=== PATIENT | female | born 1980 | race Caucasian/White ===

== ENCOUNTER 2017-03-15 06:44 | Emergency (ER) | payer SELFPAY ==
[2017-03-15 07:51] VITALS: BP 134/100
[2017-03-15 08:51] LABS: Basophils % (Auto) 0.5 % (0.0-1.8); Eosinophils % (Auto) 0.9 % (0.0-4.3); Hematocrit 45.8 % (30.3-42.9); Hemoglobin 15.1 gm/dl (10.1-14.3); Mean Corpuscular HGB Conc 33 % (30-34); Mean Corpuscular Hemoglobin 31 pg (28-32); Mean Corpuscular Volume 93 fl (79-97); Platelet Count 166 K/mm3 (140-440); Red Blood Count 4.94 M/mm3 (3.65-5.03); White Blood Count 7.1 K/mm3 (4.5-11.0)
[2017-03-15 08:59] LABS: Anion Gap 16 mmol/L; Blood Urea Nitrogen 7 mg/dL (7-17); Calcium 8.9 mg/dL (8.4-10.2); Carbon Dioxide 25 mmol/L (22-30); Chloride 101.4 mmol/L (98-107); Glucose 113 mg/dL (65-100); Potassium 4.9 mmol/L (3.6-5.0); Sodium 137 mmol/L (137-145)
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
== END 2017-03-15 08:40 | disposition left against medical advice (07) ==
LOC: ED 06:44
DX: R45.86 Emotional lability (principal); F31.9 Bipolar disorder, unspecified; F20.9 Schizophrenia, unspecified; F12.90 Cannabis use, unspecified, uncomplicated; Z72.0 Tobacco use
CPT/HCPCS: 36415; 80048; 85025; 99283; G0480; 80320

== ENCOUNTER 2017-03-17 00:48 | Emergency (ER) | payer SELFPAY ==
[2017-03-17 01:16] VITALS: BP 108/79
[2017-03-17 01:54] LABS: Urine Drugs of Abuse Note Disclamer
[2017-03-17 02:17] LABS: Basophils % (Auto) 0.5 % (0.0-1.8); Eosinophils % (Auto) 2.1 % (0.0-4.3); Hematocrit 44.9 % (30.3-42.9); Hemoglobin 14.6 gm/dl (10.1-14.3); Mean Corpuscular HGB Conc 33 % (30-34); Mean Corpuscular Hemoglobin 30 pg (28-32); Mean Corpuscular Volume 93 fl (79-97); Platelet Count 176 K/mm3 (140-440); Red Blood Count 4.85 M/mm3 (3.65-5.03); Red Cell Distribution Width 13.2 % (13.2-15.2); White Blood Count 6.8 K/mm3 (4.5-11.0)
[2017-03-17 02:20] LABS: Anion Gap 18 mmol/L; BUN/Creatinine Ratio 11.25; Blood Urea Nitrogen 9 mg/dL (7-17); Carbon Dioxide 27 mmol/L (22-30); Glucose 77 mg/dL (65-100); Potassium 3.4 mmol/L (3.6-5.0); Sodium 141 mmol/L (137-145)
[2017-03-17 02:21] LABS: Bacteria,Urine 1+ /HPF (Negative); Bilirubin,Urine NEG (Negative); Blood,Urine NEG (Negative); Ketones,Urine 20 mg/dL (Negative); Leukocyte Esterase,Urine TR (Negative); Mucus,Urine 3+ /HPF; Nitrite,Urine POS (Negative)
--- NOTE | 2017-03-17 14:44 | ED Elopement Review ---
ED Pt Elopement review - Results review Lab results: Laboratory Tests 03/17/17 03/17/17 03/17/17 01:40 01:40 01:40 WBC 6.8 RBC 4.85 Hgb 14.6 H Hct 44.9 H MCV 93 MCH 30 MCHC 33 RDW 13.2 Plt Count 176 Lymph % (Auto) 38.9 H [place] % (Auto) 10.5 H Eos % (Auto) 2.1 Baso % (Auto) 0.5 Lymph # 2.6 [place] # 0.7 Eos # 0.1 Baso # 0.0 Seg Neutrophils % 48.0 Seg Neutrophils # 3.3 Sodium 141 Potassium 3.4 L D Chloride 99.0 Carbon Dioxide 27 Anion Gap 18 BUN 9 Creatinine 0.8 Estimated GFR > 60 BUN/Creatinine Ratio 11.25 Glucose 77 Calcium 9.0 Urine Color Urine Turbidity Urine pH Ur Specific [place] Urine Protein Urine Glucose (UA) Urine Ketones Urine Blood Urine Nitrite Urine Bilirubin Urine Urobilinogen Ur Leukocyte Esterase Urine WBC (Auto) Urine RBC (Auto) U Epithel Cells (Auto) Urine Bacteria (Auto) Urine Mucus Urine HCG, Qual Urine Opiates Screen Urine Methadone Screen Ur Barbiturates Screen Ur Phencyclidine Scrn Ur Amphetamines Screen U Benzodiazepines Scrn Urine Cocaine Screen U Marijuana (THC) Screen Drugs of Abuse Note Plasma/Serum Alcohol < 0.01 03/17/17 03/17/17 Unknown Unknown WBC RBC Hgb Hct MCV MCH MCHC RDW Plt Count Lymph % (Auto) [place] % (Auto) Eos % (Auto) Baso % (Auto) Lymph # [place] # Eos # Baso # Seg Neutrophils % Seg Neutrophils # Sodium Potassium Chloride Carbon Dioxide Anion Gap BUN Creatinine Estimated GFR BUN/Creatinine Ratio Glucose Calcium Urine Color [place] Urine Turbidity Clear Urine pH 5.0 Ur Specific [place] 1.029 Urine Protein 30 mg/dl Urine Glucose (UA) Neg Urine Ketones 20 Urine Blood Neg Urine Nitrite Pos Urine Bilirubin Neg Urine Urobilinogen 4.0 Ur Leukocyte Esterase Tr Urine WBC (Auto) 7.0 H Urine RBC (Auto) 6.0 U Epithel Cells (Auto) 5.0 Urine Bacteria (Auto) 1+ Urine Mucus 3+ Urine HCG, Qual Negative Urine Opiates Screen Presumptive negative Urine Methadone Screen Presumptive negative Ur Barbiturates Screen Presumptive negative Ur Phencyclidine Scrn Presumptive negative Ur Amphetamines Screen Presumptive negative U Benzodiazepines Scrn Presumptive negative Urine Cocaine Screen Presumptive negative U Marijuana (THC) Screen Presumptive positive Drugs of Abuse Note Disclamer Plasma/Serum Alcohol - Call Back decision Pt Call Back Decision: No action required
== END 2017-03-17 05:15 | disposition left against medical advice (07) ==
LOC: ED 00:48
DX: N89.8 Other specified noninflammatory disorders of vagina (principal); Z53.21 Procedure and treatment not carried out due to patient leaving prior to being seen by health care provider
CPT/HCPCS: 36415; 80048; 80307; 81001; 81025; 85025; G0480; 80320

== ENCOUNTER 2017-03-21 00:03 | Emergency (ER) | payer OTHER ==
[2017-03-21 00:15] VITALS: BP 107/80
[2017-03-21 00:50] LABS: Bacteria,Urine 1+ /HPF (Negative); Bilirubin,Urine NEG (Negative); Blood,Urine NEG (Negative); Ketones,Urine 80 mg/dL (Negative); Leukocyte Esterase,Urine TR (Negative); Mucus,Urine 3+ /HPF; Nitrite,Urine NEG (Negative)
--- NOTE | 2017-03-21 01:16 | Emergency Department Report ---
HPI - General Chief Complaint: Urogenital-Female Time Seen by Provider: 03/21/17 00:35 - HPI HPI: 36-year-old female presents today complaining of vaginal discharge 2 weeks. Patient also complains of strong smell in her urine. Positive for history of UTI and states that this feels similar. Denies burning upon urination or blood in urine. Admits to increased urinary frequency and urgency. Denies fever, chills, nausea, vomiting, chest pain, shortness of breath, abdominal pain. Patient states that she was here last week and eloped. She would like to know her lab results. ED Past Medical Hx - Past Medical History Previous Medical History?: Yes Hx Psychiatric Treatment: Yes (bipolar, schizophrenia) Additional medical history: Vaginal delivery x 1 - Surgical History Past Surgical History?: No - Social History Smoking Status: Never Smoker Substance Use Type: None - Medications Home Medications: Home Medications Medication Instructions Recorded Confirmed Last Taken Type Nitrofurantoin Bates/M-Cryst 100 mg PO Q12HR #10 capsule 03/21/17 Unknown Rx [Macrobid CAP] metroNIDAZOLE [Flagyl] 500 mg PO Q12HR #14 tab 03/21/17 Unknown Rx ED Review of Systems ROS: Stated complaint: VAG DISCHARGE Other details as noted in HPI Constitutional: denies: chills, fever, malaise Eyes: denies: eye pain ENT: denies: ear pain, throat pain, congestion Respiratory: denies: cough, shortness of breath, wheezing Cardiovascular: denies: chest pain, palpitations Endocrine: no symptoms reported Gastrointestinal: denies: abdominal pain, nausea, vomiting Genitourinary: urgency, frequency, discharge. denies: dysuria, hematuria Skin: denies: rash Neurological: denies: headache, weakness Physical Exam - Physical Exam Vital Signs: Vital Signs 03/21/17 03/21/17 00:10 00:54 Temperature 98.3 F Pulse Rate 85 Respiratory 18 18 Rate Blood Pressure 107/80 [Right] O2 Sat by Pulse 99 Oximetry Physical Exam: GENERAL: The patient is well-developed and well-nourished. Patient is in NAD. HEAD: Normocephalic. Atraumatic. CHEST/LUNGS: Clear to auscultation throughout. HEART/CARDIOVASCULAR: Regular rate and rhythm. No murmurs, rubs or gallops. ABDOMEN: Abdomen is soft, nontender. Bowel sounds normoactive. No guarding or rebound tenderness. Negative for CVA tenderness bilaterally. GENITAL: Normal external genitalia. Positive for white curdy discharge in vaginal canal. No bleeding noted. EXTREMITIES: Peripheral pulses intact. Capillary refill less than 2 seconds. NEURO: Alert and oriented x 3. Normal gait. ED Course Vital Signs 03/21/17 03/21/17 00:10 00:54 Temperature 98.3 F Pulse Rate 85 Respiratory 18 18 Rate Blood Pressure 107/80 [Right] O2 Sat by Pulse 99 Oximetry ED Medical Decision Making - Lab Data Result diagrams: 03/21/17 01:00 Vital Signs 03/21/17 03/21/17 00:10 00:54 Temperature 98.3 F Pulse Rate 85 Respiratory 18 18 Rate Blood Pressure 107/80 [Right] O2 Sat by Pulse 99 Oximetry Lab Results 03/21/17 03/21/17 Range/Units 00:29 01:00 Sodium 141 (137-145) mmol/L Potassium 3.5 L (3.6-5.0) mmol/L Chloride 105.4 (98-107) mmol/L Carbon Dioxide 27 (22-30) mmol/L Anion Gap 12 mmol/L BUN 11 (7-17) mg/dL Creatinine 0.7 (0.7-1.2) mg/dL Estimated GFR > 60 ml/min BUN/Creatinine Ratio 15.71 % Glucose 100 (65-100) mg/dL Calcium 8.0 L (8.4-10.2) mg/dL Urine Color Yellow (Yellow) Urine Turbidity Clear (Clear) Urine pH 5.0 (5.0-7.0) Ur Specific [place] 1.028 (1.003-1.030) Urine Protein 30 mg/dl (Negative) mg/dL Urine Glucose (UA) Neg (Negative) mg/dL Urine Ketones 80 (Negative) mg/dL Urine Blood Neg (Negative) Urine Nitrite Neg (Negative) Urine Bilirubin Neg (Negative) Urine Urobilinogen 2.0 (<2.0) mg/dL Ur Leukocyte Esterase Tr (Negative) Urine WBC (Auto) 4.0 (0.0-6.0) /HPF Urine RBC (Auto) 5.0 (0.0-6.0) /HPF U Epithel Cells (Auto) 13.0 (0-13.0) /HPF Urine Bacteria (Auto) 1+ (Negative) /HPF Urine Mucus 3+ /HPF Urine HCG, Qual Negative (Negative) Wet Prep: Positive for Clue Cells - Medical Decision Making 36-year-old female presents today with vaginal discharge and urinary symptoms 2 weeks. Her urinalysis revealed elevated leukocyte Estrace. Her wet prep is positive for clue cells. Consulted with Dr. Savage in regards to patient's potassium level, he states patient is okay to be discharged home. Patient is in no acute distress at this time. She will be discharged home and is encouraged to follow up with a primary care provider. She will be sent home on Flagyl and Macrobid and is encouraged to return to the emergency room for any worsening symptoms. Critical care attestation.: If time is entered above; I have spent that time in minutes in the direct care of this critically ill patient, excluding procedure time. ED Disposition Clinical Impression: Bacterial vaginosis UTI (urinary tract infection) Qualifiers: Urinary tract infection type: acute cystitis Hematuria presence: without hematuria Qualified Code(s): N30.00 - Acute cystitis without hematuria Disposition: DISCHARGED TO HOME OR SELFCARE Is pt being admited?: No Does the pt Need Aspirin: No Condition: Stable Instructions: Bacterial Vaginosis (ED), Urinary Tract Infection in Women (ED) Additional Instructions: Follow-up with primary care provider. Return to the emergency department if symptoms worsen. Prescriptions: metroNIDAZOLE [Flagyl] 500 mg PO Q12HR #14 tab Nitrofurantoin Bates/M-Cryst [Macrobid CAP] 100 mg PO Q12HR #10 capsule Referrals: PRIMARY CARE, [Primary Care Provider] - 3-5 Days [facility] [Outside] - 3-5 Days Forms: STI Treatment and Prevention, Work/School Release Form(ED) Time of Disposition: 01:56
[2017-03-21 01:28] LABS: BUN/Creatinine Ratio 15.71; Blood Urea Nitrogen 11 mg/dL (7-17); Carbon Dioxide 27 mmol/L (22-30); Glucose 100 mg/dL (65-100)
[2017-03-21 01:29] LABS: Anion Gap 12 mmol/L; Chloride 105.4 mmol/L (98-107); Potassium 3.5 mmol/L (3.6-5.0); Sodium 141 mmol/L (137-145)
== END 2017-03-21 02:05 | disposition home or self-care (01) ==
LOC: ED 00:03
DX: N76.0 Acute vaginitis (principal); N30.00 Acute cystitis without hematuria; B96.89 Other specified bacterial agents as the cause of diseases classified elsewhere; F20.9 Schizophrenia, unspecified; F31.9 Bipolar disorder, unspecified
CPT/HCPCS: 36415; 80048; 81001; 81025; 87210; 87591; 99283

== ENCOUNTER 2022-04-02 09:38 | Day surgery (SDC) | payer OTHER ==
--- NOTE | 2022-04-01 19:35 | History and Physical Report ---
History of Present Illness Date of examination: 04/02/22 Medications and Allergies Allergies Allergy/AdvReac Type Severity Reaction Status Date / Time No Known Allergies Allergy Unverified 03/27/22 15:34 Home Medications Medication Instructions Recorded Confirmed Last Taken Type No Known Home Medications [No 03/27/22 03/27/22 Unknown History Reported Home Medications] Active Meds: Active Medications Acetaminophen (Acetaminophen 500 Mg Tab) 1,000 mg PO PREOP CHARANJIT Celecoxib (Celecoxib 200 Mg Cap) 200 mg PO PREOP CHARANJIT Gabapentin (Gabapentin 300 Mg Cap) 300 mg PO PREOP CHARANJIT Lactated Ringer's (Lactated Ringers) 1,000 mls @ 100 mls/hr IV DIRECT CHARANJIT Stop: 04/02/22 23:59 Midazolam HCl (Midazolam 2 Mg/2 Ml Inj) 2 mg IV PREOP CHARANJIT Scopolamine (Scopolamine Transdermal Patch 72 Hr) 1 each TD PREOP CHARANJIT Results All other labs normal.
[~2022-04-02 09:38] MED LIST: ACETAMINOPHEN 500 MG TAB PO SCH; CELECOXIB 200 MG CAP PO SCH; GABAPENTIN 300 MG CAP PO SCH; LACTATED RINGERS 1,000 ML IV SCH; MIDAZOLAM 2 MG/2 ML INJ IV SCH; SCOPOLAMINE TRANSDERMAL PATCH 72 HR TD SCH
[2022-04-02] MEDS ORDERED: ONDANSETRON 4 MG/2 ML INJ IV PRN (11:09)
[2022-04-02] MEDS ORDERED: HYDROmorphone 1 MG/1 ML INJ IV PRN (11:09)
[2022-04-02] MEDS ORDERED: oxyCODONE /ACETAMINOPHEN 5-325MG TAB PO PRN (11:09)
--- NOTE | 2022-04-02 11:09 | Anesthesia Consultation ---
Anesthesia Consult and Med Hx Date of service: 04/02/22 - Airway Anesthetic Teeth Evaluation: Good ROM Head & Neck: Adequate Mental/Hyoid Distance: Adequate Mallampati Class: Class II Intubation Access Assessment: Probably Good - Pre-Operative Health Status ASA Pre-Surgery Classification: ASA1 Proposed Anesthetic Plan: General - Pulmonary Hx Smoking: Yes (quit 20yrs ago) Hx Respiratory Symptoms: No - Cardiovascular System Hx Hypertension: No - Central Nervous System CVA: No - Endocrine Hx Renal Disease: No Hx Liver Disease: No Hx Insulin Dependent Diabetes: No Hx Non-Insulin Dependent Diabetes: No - Other Systems Hx Obesity: Yes (BMI 34) - Additional Comments Anesthesia Medical History Comments: No hx anesthetic complications.
--- NOTE | 2022-04-02 11:09 | Anesthesia Day of Surgery ---
Anesthesia Day of Surgery - Day of Surgery Patient Examined: Yes Patient H&P Reviewed: Yes Patient is NPO: Yes
[2022-04-02 13:52] VITALS: BP 104/65
== END 2022-04-02 09:39 | disposition home or self-care (01) ==
LOC: OR 09:38
PROVIDERS: ATTEND Obstetrics & Gynecology
DX: Z30.2 Encounter for sterilization (principal); F31.9 Bipolar disorder, unspecified; E66.9 Obesity, unspecified; Z53.8 Procedure and treatment not carried out for other reasons; Z87.891 Personal history of nicotine dependence; Z79.899 Other long term (current) drug therapy; Z68.34 Body mass index [BMI] 34.0-34.9, adult
CPT/HCPCS: 81025; J2250; J7120

== ENCOUNTER 2022-07-20 12:35 | Emergency (ER) | payer OTHER ==
[2022-07-20 12:41] VITALS: BP 116/76
--- NOTE | 2022-07-20 12:41 | Event Note ---
ED Screening Note ED Screening Note: 42-year-old female sent over from Dr. Qureshi's office for a D&C. Per [facility] charge nurse, "Dr. Qureshi said ,once his CBC a type and screen and then call him with the results And schedule her for a D&C today". Patient reports pelvic pain, she denies weakness dizziness vision changes. General: Nontoxic appearing no acute distress Cardiac: Regular rate, normal heart sounds Respiratory: Normal lung sounds bilaterally no use of solar sales representative and assessor muscles GI/-normal sounds, nontender no guarding Musculoskeletal-normal inspection full range of motion Neuro-alert oriented x4. In the setting of a significantly high volume and record number of patients presenting to the emergency department and the fact that we have a limited space to see patients we have implemented the provider in triage protocol this allows an expedited initial exam of patients that might otherwise have left without being seen or who would wait longer than usual to be seen by provider. I interviewed the patient and performed a limited physical exam. This patient is a pulled from the waiting room to triage room for an initial assessment of adrenal studies and then returned to the waiting room pending results of the studies. The ultimate final evaluation and disposition may be performed by another provider depending on room and provider availability.
[2022-07-20 13:12] LABS: Hematocrit 38.3 % (30.3-42.9); Hemoglobin 12.8 gm/dl (10.1-14.3); Mean Corpuscular HGB Conc 33 % (30-34); Mean Corpuscular Volume 90 fl (79-97); Platelet Count 164 K/mm3 (140-440); Red Blood Count 4.25 M/mm3 (3.65-5.03); Red Cell Distribution Width 13.9 % (13.2-15.2)
[2022-07-20 13:28] LABS: BUN/Creatinine Ratio 13; Blood Urea Nitrogen 12 mg/dL (7-17); Calcium 8.9 mg/dL (8.4-10.2); Hemolysis Index 19
--- NOTE | 2022-07-20 14:42 | Ultrasound Report ---
Pelvic Ultrasound HISTORY: VAG BLEED. TECHNIQUE: Grayscale and color imaging performed. COMPARISON: None FINDINGS: Transabdominal and endovaginal imaging performed. Uterus measures 11.5 x 5.3 x 7.6 cm with endometrial echocomplex measuring 1.8 cm. The right ovary co ntains a simple cyst measuring 4.1 cm in maximal dimension. Left ovary is unremarkable. No significan t pelvic free fluid identified. IMPRESSION: Simple right ovarian cyst. Otherwise unremarkable exam. Signer Name: Olivier Arriola MD Signed: 07/20/2022 2:38 PM Workstation Name: [employer] [facility]
--- NOTE | 2022-07-20 15:00 | Emergency Department Report ---
ED Female HPI - General Chief complaint: Urogenital-Female Stated complaint: ABD PAIN Time Seen by Provider: 07/20/22 13:13 Source: patient Mode of arrival: Ambulatory Limitations: No Limitations - History of Present Illness Initial comments: 42 yo comes to ER [facility] on 06/28 stating she was sent here for co for retained product. She states she had us this AM and she saw something on it so she came to the ER. She is non medical co cramping. no vag bleeding. no fever. no chills no discharge. no back pain no dysuria - Related Data Previous Rx's Medication Instructions Recorded Last Taken Type Ibuprofen [Motrin] 800 mg PO Q8HR PRN #30 tablet 07/20/22 Unknown Rx Allergies Allergy/AdvReac Type Severity Reaction Status Date / Time No Known Allergies Allergy Unverified 03/27/22 15:34 ED Review of Systems ROS: Stated complaint: ABD PAIN Other details as noted in HPI Comment: All other systems reviewed and negative ED Past Medical Hx - Past Medical History Previous Medical History?: Yes Hx Hypertension: No Hx Liver Disease: No Hx Renal Disease: No Hx Psychiatric Treatment: Yes (bipolar, schizophrenia) Additional medical history: Vaginal delivery x 1 - Surgical History Past Surgical History?: Yes - Family History Family history: no significant - Social History Smoking Status: Former Smoker Substance Use Type: Alcohol - Medications Home Medications: Home Medications Medication Instructions Recorded Confirmed Last Taken Type Ibuprofen [Motrin] 800 mg PO Q8HR PRN #30 tablet 07/20/22 Unknown Rx ED Physical Exam - General Limitations: No Limitations General appearance: alert, in no apparent distress - Head Head exam: Present: atraumatic, normocephalic - Eye Eye exam: Present: normal appearance - ENT ENT exam: Present: mucous membranes moist - Neck Neck exam: Present: normal inspection - Respiratory Respiratory exam: Present: normal lung sounds bilaterally. Absent: respiratory distress - Cardiovascular Cardiovascular Exam: Present: regular rate, normal rhythm. Absent: systolic murmur, diastolic murmur, rubs, gallop - GI/Abdominal GI/Abdominal exam: Present: soft, normal bowel sounds - Extremities Exam Extremities exam: Present: normal inspection - Back Exam Back exam: Present: normal inspection - Neurological Exam Neurological exam: Present: alert, oriented X3 - Psychiatric Psychiatric exam: Present: normal affect, normal mood - Skin Skin exam: Present: warm, dry, intact, normal color. Absent: rash ED Course Vital Signs 07/20/22 07/20/22 12:37 12:41 Temperature 97.8 F Pulse Rate 65 Respiratory 18 Rate Blood Pressure 116/76 [Left] O2 Sat by Pulse 99 Oximetry ED Medical Decision Making - Lab Data Result diagrams: 07/20/22 12:58 07/20/22 12:58 - Radiology Data Radiology results: report reviewed, image reviewed - Medical Decision Making Lab Results 07/20/22 07/20/22 07/20/22 Range/Units 12:58 12:58 12:58 WBC 6.1 (4.5-11.0) K/mm3 RBC 4.25 (3.65-5.03) M/mm3 Hgb 12.8 (10.1-14.3) gm/dl Hct 38.3 (30.3-42.9) % MCV 90 (79-97) fl MCH 30 (28-32) pg MCHC 33 (30-34) % RDW 13.9 (13.2-15.2) % Plt Count 164 (140-440) K/mm3 Sodium 139 (137-145) mmol/L Potassium 4.3 (3.6-5.0) mmol/L Chloride 104.6 (98-107) mmol/L Carbon Dioxide 27 (22-30) mmol/L Anion Gap 12 mmol/L BUN 12 (7-17) mg/dL Creatinine 0.9 (0.6-1.2) mg/dL Estimated GFR > 60 ml/min BUN/Creatinine Ratio 13 % Glucose 96 (65-100) mg/dL Calcium 8.9 (8.4-10.2) mg/dL Blood Type B POSITIVE Antibody Screen Negative Vital Signs 07/20/22 07/20/22 12:37 12:41 Temperature 97.8 F Pulse Rate 65 Respiratory 18 Rate Blood Pressure 116/76 [Left] O2 Sat by Pulse 99 Oximetry labs noted vss us noted dc home with dc plan of care including diet, meds, activity and follow up pt verbalizes understanding of plan of care. - Differential Diagnosis ro retained product Critical care attestation.: If time is entered above; I have spent that time in minutes in the direct care of this critically ill patient, excluding procedure time. ED Disposition Clinical Impression: Ovarian cyst Disposition: 01 HOME / SELF CARE / HOMELESS Is pt being admited?: No Does the pt Need Aspirin: No Condition: Stable Instructions: Ovarian Cyst, [id number] Additional Instructions: med as ordered today follow up with obgyn referral below Prescriptions: Ibuprofen [Motrin] 800 mg PO Q8HR PRN #30 tablet PRN Reason: Pain, Moderate (4-6) Referrals: GREG HOLT MD [Staff Physician] - 3-5 Days Forms: Work/School Release Form(ED) Time of Disposition: 14:59
== END 2022-07-20 15:05 | disposition home or self-care (01) ==
LOC: ED 12:35
DX: N83.201 Unspecified ovarian cyst, right side (principal); F31.9 Bipolar disorder, unspecified; F20.9 Schizophrenia, unspecified; Z72.89 Other problems related to lifestyle; Z79.899 Other long term (current) drug therapy
CPT/HCPCS: 36415; 76830; 76856; 80048; 85027; 86850; 86900; 86901; 99284